=== PATIENT | female | born 1955 | race Two or more races ===

== ENCOUNTER 2016-06-05 11:56 | Emergency (ER) | payer OTHER, BC ==
[2016-06-05 12:15] VITALS: TEMP 97.7; BMI 25.4
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
[2016-06-05] MEDS ORDERED: METHOCARBAMOL 500 MG TABLET PO ONE (12:32)
[2016-06-05] MEDS ORDERED: KETOROLAC TROMETHAMINE 30 MG/1 ML VIAL IM ONE (12:32)
[2016-06-05] MEDS ORDERED: METHOCARBAMOL 500 MG TABLET ONE (12:37)
[2016-06-05] MEDS ORDERED: KETOROLAC TROMETHAMINE 30 MG/1 ML VIAL ONE (12:37)
[2016-06-05 14:52] VITALS: BP 144/73; PULSE 62
== END 2016-06-05 14:52 | disposition home or self-care (01) ==
LOC: JER 11:56
PROC: 3E0233Z Introduction of Anti-inflammatory into Muscle, Percutaneous Approach (ICD-10-PCS; principal; 2016-06-05)
DX: M54.5 Low back pain (principal); E78.5 Hyperlipidemia, unspecified; R73.03 Prediabetes; V47.5XXA Car driver injured in collision with fixed or stationary object in traffic accident, initial encounter; Y92.488 Other paved roadways as the place of occurrence of the external cause; Y93.89 Activity, other specified
CPT/HCPCS: 72110-TC; 99281-25

== ENCOUNTER 2018-10-06 06:15 | Day surgery (SDC) | payer BC ==
[2018-10-04 11:58] VITALS: BMI 23.8
[2018-10-06] MEDS ORDERED: LIDOCAINE HCL 1% PRESERVATIVE FREE - 30ML VIAL ONE (07:13)
[2018-10-06] MEDS ORDERED: MIDAZOLAM HCL 2 MG/2 ML SINGLE DOSE VIAL ONE (07:46)
[2018-10-06] MEDS ORDERED: PROPOFOL 20 ML ONE (08:12)
[2018-10-06] MEDS ORDERED: LIDOCAINE HCL 1%, 10 MG/ML (50 mL VIAL) IJ ONE (08:35)
[2018-10-06] MEDS ORDERED: DEXAMETHASONE SOD PHOSPHATE 4 MG/1 ML VIAL ONE (08:43)
[2018-10-06] MEDS ORDERED: ONDANSETRON 4 MG/2 ML VIAL ONE (08:43)
[2018-10-06] MEDS ORDERED: PROMETHAZINE HCL 25 MG/1 ML VIAL IVPUSH PRN (09:01)
[2018-10-06] MEDS ORDERED: ONDANSETRON 4 MG/2 ML VIAL IVPUSH PRN (09:01)
[2018-10-06 09:49] VITALS: TEMP 98
--- NOTE | 2018-10-06 09:58 | OP ---
DATE OF OPERATION: 10/06/2018 PREOPERATIVE DIAGNOSIS: Triggering of the right thumb. POSTOPERATIVE DIAGNOSIS: Triggering of the right thumb. PROCEDURE PERFORMED: Right thumb trigger release and flexor tendon exploration. SURGEON: Allen Marcos MD HEREDITARY CANCER PROGRAM COORDINATOR: MEÑO Fried ANESTHESIOLOGIST: Marty Case MD ANESTHESIA: Monitored anesthesia care with local. DESCRIPTION OF PROCEDURE: The procedure consists of patient being brought in the operating room and gently transferred from the stretcher to the OR table with all bony prominences well padded. The right hand was prepared and draped in a sterile fashion.. Patient was given intravenous antibiotics with copious irrigation throughout the procedure to minimize risk of infection. Complete risks, benefits, and alternatives discussion was conducted with the patient, which was inclusive of, but not limited to, infection, bleeding, , paralysis, increased pain, need for repeat surgery. Patient asked questions, understood the procedure, and decided to proceed with surgical treatment. Following sterile preparation and draping of the right arm, an appropriate time-out was conducted, which was inclusive of, but not limited to, type of surgery, site of surgery, anesthesiologist, surgeon. Following sterile preparation and draping of the right arm, the arm was exsanguinated using a sterile Esmarch bandage, and the flexor tendon was identified. At the right thumb, a palpable mass was identified, and at the crease between the thumb and the palm, a 1-cm incision was made directly overlying the thumb flexor tendon. The annular mo was identified. That was creating constriction, and under direct visualization using loupe magnification, the mo was released along flexor tendon movement. Great care was taken throughout the procedure to protect the neurovascular structures. The patient was then awoken from sedation she had received and was asked to open and close the hand. Prior to the release of the tendon mo, the thumb would not traverse and flex , but with release, the patient was able to flex and extend the thumb to full movement without restriction. Wounds were then copiously irrigated sterile saline irrigant. The tourniquet was deflated after approximately 10 minutes of tourniquet time. Hemostasis was maintained by using bipolar cautery. The wounds were then closed with interrupted mattress sutures of 4-0 Prolene. Following the closure, a dressing of Xeroform, 4x4s, fluffs, and dressing was applied. A stockinette for elevation was then also provided, and patient was then gently awoken from anesthesia without incident, transferred from the operating room to the recovery room in satisfactory condition. There were no intraoperative complications. ALLEN MARCOS M.D. [id number]
[2018-10-06 10:21] VITALS: BP 117/61; PULSE 61
== END 2018-10-06 10:30 | disposition home or self-care (01) ==
LOC: FASU 06:15
PROVIDERS: ATTEND Orthopaedic Surgery
PROC: 0LN70ZZ Release Right Hand Tendon, Open Approach (ICD-10-PCS; principal; 2018-10-06 08:32)
DX: M65.311 Trigger thumb, right thumb (principal)
CPT/HCPCS: 94760

== ENCOUNTER 2019-03-23 09:11 | Day surgery (SDC) | payer OTHER, BC ==
[2019-03-22 11:00] VITALS: BMI 24.2
[2019-03-23] MEDS ORDERED: LIDOCAINE HCL 1%, 10 MG/ML (20ML VIAL) ONE (11:24)
[2019-03-23] MEDS ORDERED: MIDAZOLAM HCL 2 MG/2 ML SINGLE DOSE VIAL ONE (12:10)
[2019-03-23] MEDS ORDERED: PROPOFOL 20 ML ONE (12:10)
[2019-03-23] MEDS ORDERED: ceFAZolin SODIUM 1 GM VIAL ONE (12:26)
[2019-03-23] MEDS ORDERED: ONDANSETRON 4 MG/2 ML VIAL ONE (12:31)
[2019-03-23] MEDS ORDERED: DEXAMETHASONE SOD PHOSPHATE 4 MG/1 ML VIAL ONE (12:31)
[2019-03-23] MEDS ORDERED: ONDANSETRON 4 MG/2 ML VIAL IVPUSH PRN (13:08)
[2019-03-23] MEDS ORDERED: oxyCODONE HCL 5 MG TABLET PO PRN (13:08)
[2019-03-23] MEDS ORDERED: LACTATED RINGERS SOLUTION 1,000 ML IV SCH (13:15)
[2019-03-23] MEDS ORDERED: ACETAMINOPHEN 325 MG TABLET (FP) PO PRN (13:57)
--- NOTE | 2019-03-23 14:03 | OP ---
DATE OF OPERATION: 03/23/2019 PREOPERATIVE DIAGNOSIS: Triggering of right long finger. POSTOPERATIVE DIAGNOSIS: Triggering of right long finger. PROCEDURE PERFORMED: Right long finger trigger release of the annular mo and and tendon exploration and paratenon release with plastic surgical closure. SURGEON: Allen Hernandez MD OFFICE SUPPORT ASSOCIATE: MEÑO Christianson ANESTHESIA: Joey Ng MD, monitored anesthesia care with local anesthesia was performed. DESCRIPTION OF PROCEDURE: The procedure consisted of the patient being brought into the operating room and gently transferred from the stretcher to the OR table with all bony prominences well padded. The right hand was prepared and draped in a sterile fashion. The patient was given intravenous antibiotics and copious irrigation throughout the procedure to minimize risk of infection. A complete risk, benefit, alternative discussion was conducted with the patient, which was inclusive of, but not limited to, infection, bleeding, , paralysis, increased pain, need for repeat surgery. Patient asked questions, understood the procedure, and decided to proceed with the surgical treatment. Following the sterile preparation and draping of the right hand, an appropriate time-out was conducted, which was inclusive of, but not limited to, type of surgery, site of surgery, anesthesiologist, and surgeon. Following the sterile preparation and draping of the right hand, the right hand was examined. The long finger was identified to have a palpable mass palpable distal to the mid palmar crease, and there was noted to be incomplete excursion of the finger. A linear incision approximately 1.3 cm in length was made in line with the palmar crease. Soft tissues were dissected through with great care taken to protect the neurovascular structures. It should be noted that a tourniquet had been used and had been inflated after exsanguination, and the tourniquet had been inflated to 250 mmHg. Gentle retraction was performed with protection of the neurovascular structures by the 1st therapeutic recreation assistant, Karan Sharma. His assistance was critical in protecting the patient throughout the surgical treatment. He positioned the hand and held it properly to allow surgical access to the tendon and visualizations of the annular pulleys. There was noted to be an enlargement consistent with a mass in the tendon, and the annular mo, which was constricting the tendon, and the mass was gently released after probing distally. There was also constriction from an annular mo, and this was gently released. Following this, with anesthesia decreasing the level of sedation, and the patient was asked to open and close her hand. The patient was able to do so, and before there was triggering and snapping with incomplete ability to close and open the hand without assistance with another hand. The tendon was noted to have a full excursion, and no triggering and snapping occurred with extension and flexion of the long finger. The wounds were then copiously irrigated. Tourniquet was deflated after approximately 25 minutes of tourniquet time. Hemostasis was maintained using bipolar cautery. The wounds were then closed in a plastic surgical fashion using a running 4-0 Prolene. Steri-Strips, Xeroform, 4 x 4's, Combine, sterile Webril, Horacio bandage, and a bulky dressing were applied to the hand. A stockinette was then given for elevation of the hand, and the patient was then gently awoken from anesthesia without incident and transferred from the operating room to the recovery room in excellent condition. ALLEN HERNANDEZ M.D. [id number]
[2019-03-23 14:38] VITALS: TEMP 97.8
[2019-03-23 15:31] VITALS: BP 98/52; PULSE 52
== END 2019-03-23 14:54 | disposition home or self-care (01) ==
LOC: FASU 09:11
PROVIDERS: ATTEND Orthopaedic Surgery
PROC: 0LN70ZZ Release Right Hand Tendon, Open Approach (ICD-10-PCS; principal; 2019-03-23 12:39)
DX: M65.341 Trigger finger, right ring finger (principal)
CPT/HCPCS: 94760

== ENCOUNTER 2024-02-02 04:21 | Day surgery (SDC) | payer OTHER, BC ==
[2024-02-01 09:20] VITALS: BMI 23.6
[2024-02-02 08:10] VITALS: TEMP 97
[2024-02-02 08:41] VITALS: RESP 13
[2024-02-02 08:46] VITALS: BP 130/55; PULSE 58
== END 2024-02-02 09:12 | disposition home or self-care (01) ==
LOC: JASU-ENDO 04:21
PROVIDERS: ATTEND Internal Medicine Gastroenterology
PROC: 0DB68ZX Excision of Stomach, Via Natural or Artificial Opening Endoscopic, Diagnostic (ICD-10-PCS; 2024-02-02)
PROC: 0DB78ZX Excision of Stomach, Pylorus, Via Natural or Artificial Opening Endoscopic, Diagnostic (ICD-10-PCS; 2024-02-02)
PROC: 0DJD8ZZ Inspection of Lower Intestinal Tract, Via Natural or Artificial Opening Endoscopic (ICD-10-PCS; principal; 2024-02-02 07:30)
DX: Z12.11 Encounter for screening for malignant neoplasm of colon (principal); K57.30 Diverticulosis of large intestine without perforation or abscess without bleeding; K64.8 Other hemorrhoids; Z86.010 Personal history of colon polyps; R10.13 Epigastric pain
CPT/HCPCS: 43239; G0105; 88305-TC; 88342-TC